=== PATIENT | female | born 2000 | race African-American/Black ===

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

== ENCOUNTER 2024-09-20 15:09 | Observation (INO) | payer MEDICAID ==
[2024-09-20] MEDS ORDERED: NITR-87 PO (15:39)
[2024-09-20] MEDS ORDERED: PREN-96 PO (15:39)
== END 2024-09-20 15:55 | disposition home or self-care (01) ==
LOC: LDRP 15:09
PROVIDERS: ADMIT Obstetrics & Gynecology; ATTEND Obstetrics & Gynecology
DX: O23.43 Unspecified infection of urinary tract in pregnancy, third trimester (principal); N39.0 Urinary tract infection, site not specified; O26.893 Other specified pregnancy related conditions, third trimester; R10.2 Pelvic and perineal pain; N89.8 Other specified noninflammatory disorders of vagina; Z3A.30 30 weeks gestation of pregnancy
CPT/HCPCS: 59025; 81002; 94760; G0378

== ENCOUNTER 2024-09-27 11:19 | Observation (INO) | payer MEDICAID ==
[~2024-09-27 11:19] MED LIST: NITR-87 PO; PREN-96 PO
[2024-09-27 12:41] LABS: Fern Testing Negative
== END 2024-09-27 13:40 | disposition home or self-care (01) ==
LOC: UNDOADMOB 11:19 → LDRP 11:19
PROVIDERS: ADMIT Obstetrics & Gynecology; ATTEND Obstetrics & Gynecology
DX: O62.9 Abnormality of forces of labor, unspecified (principal); Z3A.31 31 weeks gestation of pregnancy; Z79.899 Other long term (current) drug therapy; Z98.890 Other specified postprocedural states
CPT/HCPCS: 59025; 81002; 84112; 96360; 96361; G0378; Q0114

== ENCOUNTER 2024-10-16 18:29 | Observation (INO) | payer MEDICAID ==
[~2024-10-16] VITALS: Ht 144.8 cm; Wt 59.9 kg
--- NOTE | 2024-10-16 19:53 | DVH ---
BIOPHYSICAL PROFILE HISTORY: labor TECHNIQUE: Multiple transabdominal real-time grayscale sonographic images through the gravid uterus of the fetus with duplex Doppler color flow and M-mode spectral analysis FINDINGS: BIOPHYSICAL PROFILE: breathing score: 2 movement score: 2 tone score: 2 Quantitative VONDA score: 2 (VONDA: 18.1 Cm.) Total score: 8/8 Single live fetus in cephalic presentation. heart rate 134 beats per minute. Posterior placenta without previa or abruption IMPRESSION: 1. Biophysical profile score: 8/8 HS:Y
[2024-10-16 20:03] LABS: Basophils # (auto) 0 10 ^3/uL (0-0.2); Basophils % (auto) 0.5 % (0.0-2.0); Eosinophils # (auto) 0 10 ^3/uL (0-0.8); Eosinophils % (auto) 0.4 % (0.0-7.0); Hematocrit 29.9 % (36.0-46.0); Hemoglobin 10.2 g/dL (12.2-16.2); Lymphocytes # (auto) 1.4 10 ^3/uL (0.4-5.4); Lymphocytes % (auto) 32.6 % (10.0-50.0); Mean Corpuscular Hemoglobin 30.2 pg (28.0-32.0); Mean Corpuscular Hgb Conc. 34.1 g/dL (32.0-36.0); Mean Corpuscular Volume 88.6 fL (80.0-100.0); Monocytes # (auto) 0.8 10 ^3/uL (0-1.3); Monocytes % (auto) 17.5 % (0.0-12.0); Neutrophils # (auto) 2.2 10 ^3/uL (1.6-8.6); Platelet Count (auto) 165 10^3/uL (140-450); Red Blood Cells 3.37 10^6/uL (4.0-5.20); Red Cell Distribution Width 13.1 % (11.8-14.3); White Blood Cell 4.4 10^3/uL (4.4-10.8)
[2024-10-16 20:15] LABS: Protein, Urine < 6.0 mg/dL (1-14)
[2024-10-16 20:18] LABS: Urine Protein/Creatinine Ratio 0.47
[2024-10-16 20:21] LABS: Alanine Aminotransferase 10 U/L (7-40); Albumin 3.6 g/dL (3.2-4.8); Alkaline Phosphatase 133 U/L (46-116); Anion Gap 6 (5-15); Aspartate Aminotransferase 15 U/L (13-40); Calcium 9.5 mg/dL (8.7-10.4); Carbon Dioxide 24 mmol/L (20-31); Chloride 109 mmol/L (98-107); Glucose 85 mg/dL (74-106); Potassium 3.8 mmol/L (3.5-5.1); Sodium 139 mmol/L (136-145); Uric Acid 4.9 mg/dL (3.1-7.8)
[2024-10-16 20:22] LABS: Bilirubin, Total 0.4 mg/dL (0.2-1.0); Total Protein 6.1 g/dL (5.7-8.2)
--- NOTE | 2024-10-16 20:23 | DVH ---
LIMITED OB ULTRASOUND > 14 WKS: HISTORY: abd pain and contractions TECHNIQUE: Multiple real-time grayscale images of the gravid uterus with duplex Doppler color flow an d M-mode spectral analysis. TRANSDUCER: Transabdominal FINDINGS: IUP single live fetus at 32 weeks 3 days based on composite averages of the BPD, head circumference, abdominal circumference and femur length MEASUREMENTS: BPD: 8.84 cm GA: 34 w 1 d HC: 29.85 cm GA: 33 w 0 d AC: 27.56 cm GA: 31 w 4 d FL: 5.94 cm GA: 30 w 0 d Normal ratios. anatomic survey: Lateral ventricles: Normal Posterior fossa: Normal Umbilical cord: Normal insertion C-spine: Normal T-spine: Normal L-spine: Normal Heart: Normal four-chamber Kidneys: Normal without hydronephrosis Bladder: Normal Lower extremities: Normal Upper extremities: Normal Stomach: Normal stomach bubble Estimated weight 1834 grams heart rate 148 beats per minute VONDA 17.5 cm Cervix measures 4.6 cm in appears closed Cephalic Presentation Posterior placenta without previa or abruption. IMPRESSION: 1. IUP single live fetus at 32 weeks 3 days AUA corresponding to an GABRIEL of 12/08/2024. HS:Y
[2024-10-16 20:28] LABS: BUN/Creatinine Ratio 9.8 (10.0-20.0); Blood Urea Nitrogen < 5 mg/dL (9-23)
--- NOTE | 2024-10-16 20:29 | DVH ---
INDICATION: Abd and RUQ pain TECHNIQUE: Multiple real-time sonographic images of the abdomen were obtained. COMPARISON: Same day Ob ultrasound. Abdominal ultrasound 07/05/2024 FINDINGS: The liver is homogenous in echogenicity. The liver measures 15.3 cm. No intrahepatic bilia ry ductal dilatation is noted. The gallbladder wall measures 0.2 cm and is unremarkable. No gallstones or sludge is seen. The com mon duct measures 0.2 cm and is unremarkable. No pericholecystic fluid is noted. Die Stamping Press Operator notes a negative sonographic rodas's sign. The right kidney measures 10.5 cm. No hydronephrosis. The left kidney measures 10.7 cm. No hydronep hrosis. The spleen measures 8.7 cm, within normal limits. The echogenicity is within normal limits. The pancreas appears grossly normal. The visualized portions of the IVC and aorta are grossly unremarkable. IMPRESSION: 1. Unremarkable exam of the abdomen. HS:Y
[2024-10-16 20:50] LABS: Prothrombin Time 10.2 sec (9.3-11.8)
[2024-10-16 20:51] LABS: INR 0.96 (0.9-1.15); Partial Thromboplastin Time 25.7 SEC (24.5-34.5)
[2024-10-16] MEDS ORDERED: TERBUTALINE SULFATE 1 MG/ML 1ML VIAL SC ONE (21:00)
[2024-10-16 21:04] LABS: Urine Bacteria None Seen /hpf (None Seen)
[2024-10-16] MEDS: TERBUTALINE SULFATE 1 MG/ML 1ML VIAL SC SCH (21:10)
[2024-10-16 21:23] LABS: Urine Blood Negative /uL (Negative); Urine Clarity Clear (Clear); Urine Color Colorless (Yellow); Urine Protein, UAD Negative (Negative); Urine Specific Gravity 1.002 (1.001-1.035); Urine Urobilinogen Normal (Negative); Urine WBC <1 /hpf (0 - 5); Urine pH 6.5 (5.0-9.0)
[2024-10-16] MEDS: BETAMETHASONE ACET (30mg/5ml) 5ml Vial 6mg/ml IM ONE (21:33)
--- NOTE | 2024-10-16 22:55 | DVHDS2 ---
Physician Discharge Progress N Final Diagnosis: contractions, resolved Secondary Diagnosis: Ruled out for preeclampsia Operations or Procedures: Operations or Procedures S: 24yo IUP@34.0wks presents to OB triage with c/o UCs and abdominal pain that is 9/10 pain level. She also reports light head at her bilateral temples that did not go away with Tylenol at home. PNC with Dr. Palma in [place], uncomplicated . PMH of heart murmur and UTI that was recently treated. Denies UTI s/sx today. Denies LOF/VB/vision changes/RUQ pain. Endorses +FM. Pt reports drinking 4 leonidas's of water today. O: VSS Heart - murmur noted Lungs - clear bilaterally 2+ DTRs BLE NST reactive UCs palpated by RN, unable to see with TOCO Terbutaline SQ x1 and betamethasone IM x1 given No UCs reported by pt prior to D/C SVE by RN: 0/0/-3 OB sono WNL, CVL 4.6cm closed Abdominal sono WNL BPP wnl Urine P/C ratio is incalculable with total protein <6.0mg/dL Laboratory Tests Test 10/16/24 18:30 10/16/24 19:30 Range/Units Urine Color Colorless Yellow Urine Clarity Clear Clear Urine pH 6.5 5.0-9.0 Urine Specific [place] 1.002 1.001-1.035 Urine Protein Negative Negative Urine Ketones Negative Negative Urine Blood Negative Negative /uL Urine Nitrite Negative Negative Urine Bilirubin Negative Negative Urine Urobilinogen Normal Negative mg/dL Urine Leukocyte Esterase Negative Negative /uL Urine RBC None seen 0 - 4 /hpf Urine WBC <1 0 - 5 /hpf Urine Squamous Epithelial Cells Few <5 /hpf Urine Bacteria None seen None Seen /hpf Urine Creatinine 12.70 L 30.0-125.0 mg/dL -U-r-i-n-e- -O-u-l-t-e-i-n-/-D-t-s-r-v-t-n-i-n-e- -R-a-t-i-o- -0-.-4-7- Urine Glucose Normal Normal mg/dL Urine Total Protein < 6.0 1-14 mg/dL White Blood Count 4.4 4.4-10.8 10^3/uL Red Blood Count 3.37 L 4.0-5.20 10^6/uL Hemoglobin 10.2 L 12.2-16.2 g/dL Hematocrit 29.9 L 36.0-46.0 % Mean Corpuscular Volume 88.6 80.0-100.0 fL Mean Corpuscular Hemoglobin 30.2 28.0-32.0 pg Mean Corpuscular Hemoglobin Concent 34.1 32.0-36.0 g/dL Red Cell Distribution Width 13.1 11.8-14.3 % Platelet Count 165 140-450 10^3/uL Mean Platelet Volume 8.8 6.9-10.8 fL Neutrophils (%) (Auto) 49.0 37.0-80.0 % Lymphocytes (%) (Auto) 32.6 10.0-50.0 % Monocytes (%) (Auto) 17.5 H 0.0-12.0 % Eosinophils (%) (Auto) 0.4 0.0-7.0 % Basophils (%) (Auto) 0.5 0.0-2.0 % Neutrophils # (Auto) 2.2 1.6-8.6 10 ^3/uL Lymphocytes # (Auto) 1.4 0.4-5.4 10 ^3/uL Monocytes # (Auto) 0.8 0-1.3 10 ^3/uL Eosinophils # (Auto) 0 0-0.8 10 ^3/uL Basophils # (Auto) 0 0-0.2 10 ^3/uL Nucleated Red Blood Cells 0.0 % Prothrombin Time 10.2 9.3-11.8 sec Prothrombin Time INR 0.96 0.9-1.15 Activated Partial Thromboplast Time 25.7 24.5-34.5 SEC Fibrinogen 433 H 177-375 mg/dL Sodium Level 139 136-145 mmol/L Potassium Level 3.8 3.5-5.1 mmol/L Chloride Level 109 H 98-107 mmol/L Carbon Dioxide Level 24 20-31 mmol/L Anion Gap 6 5-15 Blood Urea Nitrogen < 5 L 9-23 mg/dL Creatinine 0.51 L 0.550-1.02 mg/dL Glomerular Filtration Rate Calc 134 >90 mL/min BUN/Creatinine Ratio 9.8 L 10.0-20.0 Serum Glucose 85 74-106 mg/dL Uric Acid 4.9 3.1-7.8 mg/dL Calcium Level 9.5 8.7-10.4 mg/dL Total Bilirubin 0.4 0.2-1.0 mg/dL Aspartate Amino Transferase (AST) 15 13-40 U/L Alanine Aminotransferase (ALT) 10 7-40 U/L Alkaline Phosphatase 133 H 46-116 U/L Total Protein 6.1 5.7-8.2 g/dL Albumin 3.6 3.2-4.8 g/dL A: 24yo IUP@34.0wks contractions, resolved Ruled out for preeclampsia P: D/C home FKC/PTL/PreE precautions reviewed Dr. Adames consulted, agrees with POC f/u with Dr. Palma on 10/17/24 to notify him of this triage visit Other Interventions Other Interventions [place] [id number] Ph: [phone] DIAGNOSTIC IMAGING Diagnostic Imaging Report : [id number] Signed PATIENT: CROW STEPHENSON ACCT: [id number] UNIT: [id number] : 2000 LOC: [facility] ROOM / BED: TRIAGE1 / A AGE / SEX: 24 / F ADM STATUS: ADM IN SERVICE 14 ORDERING PHYSICIAN: AQUILINO VEGA CNM PROCEDURE(s): BPP - BIOPHYSICAL PROFILE REASON: labor ORDER NUMBER(s): [id number], ACCESSION NUMBER(s): [id number] BIOPHYSICAL PROFILE HISTORY: labor TECHNIQUE: Multiple transabdominal real-time grayscale sonographic images through the gravid uterus of the fetus with duplex Doppler color flow and M-mode spectral analysis FINDINGS: BIOPHYSICAL PROFILE: breathing score: 2 movement score: 2 tone score: 2 Quantitative VONDA score: 2 (VONDA: 18.1 Cm.) Total score: 8/8 Single live fetus in cephalic presentation. heart rate 134 beats per minut e. Posterior placenta without previa or abruption IMPRESSION: 1. Biophysical profile score: 8/8 HS:Y ATED BY: KATE PEDRO DO DICTATED DATE/TIME: 10/16/241949 SIGNED BY: KATE PEDRO DO SIGNED DATE/TIME: 10/16/241949 CC: Consultations: Consultations [place] [address] Ph: [phone] DIAGNOSTIC IMAGING Diagnostic Imaging Report : [id number] Signed PATIENT: CROW STEPHENSON ACCT: [id number] UNIT: [id number] : 2000 LOC: [facility] ROOM / BED: TRIAGE1 / A AGE / SEX: 24 / F ADM STATUS: ADM IN SERVICE 14 ORDERING PHYSICIAN: AQUILINO VEGA CNM PROCEDURE(s): OBUS - OB ULTRASOUND COMP GTR 14 WKS REASON: abd pain and contractions ORDER NUMBER(s): [id number], ACCESSION NUMBER(s): [id number] LIMITED OB ULTRASOUND > 14 WKS: HISTORY: abd pain and contractions TECHNIQUE: Multiple real-time grayscale images of the gravid uterus with duplex Doppler color flow and M-mode spectral analysis. TRANSDUCER: Transabdominal FINDINGS: IUP single live fetus at 32 weeks 3 days based on composite averages of the BPD, head circumference, abdominal circumference and femur length MEASUREMENTS: BPD: 8.84 cm GA: 34 w 1 d HC: 29.85 cm GA: 33 w 0 d AC: 27.56 cm GA: 31 w 4 d FL: 5.94 cm GA: 30 w 0 d Normal ratios. anatomic survey: Lateral ventricles: Normal Posterior fossa: Normal Umbilical cord: Normal insertion C-spine: Normal T-spine: Normal L-spine: Normal Heart: Normal four-chamber Kidneys: Normal without hydronephrosis Bladder: Normal Lower extremities: Normal Upper extremities: Normal Stomach: Normal stomach bubble Estimated weight 1834 grams heart rate 148 beats per minute VONDA 17.5 cm Cervix measures 4.6 cm in appears closed Cephalic Presentation Posterior placenta without previa or abruption. IMPRESSION: 1. IUP single live fetus at 32 weeks 3 days AUA corresponding to an GABRIEL of 12/08/2024. HS:Y ATED BY: KATE PEDRO DO DICTATED DATE/TIME: 10/16/242019 SIGNED BY: KATE PEDRO DO SIGNED DATE/TIME: 10/16/242019 CC: Commentary: Commentary [place] [address] Ph: [phone] DIAGNOSTIC IMAGING Diagnostic Imaging Report : [id number] Signed PATIENT: CROW STEPHENSON ACCT: [id number] UNIT: [id number] : 2000 LOC: [facility] ROOM / BED: TRIAGE1 / A AGE / SEX: 24 / F ADM STATUS: ADM IN SERVICE 14 ORDERING PHYSICIAN: AQUILINO VEGA CNM PROCEDURE(s): ABDC - ABDOMEN COMPLETE SONOGRAM REASON: Abd and RUQ pain ORDER NUMBER(s): [id number], ACCESSION NUMBER(s): [id number] INDICATION: Abd and RUQ pain TECHNIQUE: Multiple real-time sonographic images of the abdomen were obtained. COMPARISON: Same day Ob ultrasound. Abdominal ultrasound 07/05/2024 FINDINGS: The liver is homogenous in echogenicity. The liver measures 15.3 cm. No intrahepatic biliary ductal dilatation is noted. The gallbladder wall measures 0.2 cm and is unremarkable. No gallstones or sludge is seen. The common duct measures 0.2 cm and is unremarkable. No pericholecystic fluid is noted. Associate Account Executive notes a negative sonographic rodas's sign. The right kidney measures 10.5 cm. No hydronephrosis. The left kidney measures 10.7 cm. No hydronephrosis. The spleen measures 8.7 cm, within normal limits. The echogenicity is within normal limits. The pancreas appears grossly normal. The visualized portions of the IVC and aorta are grossly unremarkable. IMPRESSION: 1. Unremarkable exam of the abdomen. HS:Y ATED BY: KATE PEDRO DO DICTATED DATE/TIME: 10/16/242026 SIGNED BY: KATE PEDRO DO SIGNED DATE/TIME: 10/16/242026 CC: Condition on Discharge: Stable Disposition: Home Discharge Instructions: Diet: Regular Activity: See Comment Activity comment: pelvic rest Medications: see med list Follow Up Care: Specialist: f/u with Dr. Palma on 10/17/24 to notify him of this triage visit Discharge Statement: "Patient was advised to return to the ER or call 911 if any headaches, dizziness, shortness of breath, chest pain, abdominal pain, bleeding, fevers, or worsening of medical condition. Patient was counseled about treatment plan, medications, possible side effects, patientverbalized understanding. All questions were answered to the best of my ability. This discharge took greater then 30 minutes in planning, reviewing documentation, counseling the patient, and discussing with other team members." AQUILINO VEGA CNM Oct 16, 2024 22:55
== END 2024-10-16 22:28 | disposition home or self-care (01) ==
LOC: LDRP 18:29
PROVIDERS: ADMIT Obstetrics & Gynecology; ATTEND Obstetrics & Gynecology
DX: O60.03 Preterm labor without delivery, third trimester (principal); Z3A.34 34 weeks gestation of pregnancy; Z79.899 Other long term (current) drug therapy
CPT/HCPCS: 36415; 59025; 76700; 76805; 76818; 80053; 81001; 81002; 82570; 84156; 84550; 85025; 85384; 85610; 85730; 94760; 96372; G0378; J0702; J3105

== ENCOUNTER 2024-10-17 21:02 | Observation (INO) | payer MEDICAID ==
[~2024-10-17] VITALS: Ht 144.8 cm; Wt 59.9 kg
[2024-10-17] MEDS: BETAMETHASONE ACET (30mg/5ml) 5ml Vial 6mg/ml IM ONE (21:27)
--- NOTE | 2024-10-17 21:52 | DVHDS2 ---
Physician Discharge Progress N Final Diagnosis: second dose of betamethasone Operations or Procedures: Operations or Procedures 24yo IUP@34.1wks, +FM, denies UCs/VB/LOF FHR: 142 second dose of IM betamethasone given FKC/PTL precautions reviewed. Continue pelvic rest. Dr. Adames consulted, agrees with POC. Condition on Discharge: Stable Disposition: Home Discharge Instructions: Diet: Regular Activity: See Comment Activity comment: pelvic rest Medications: see med list Follow Up Care: Specialist: f/u with primary OB on 10/18/24 and make them aware of triage visits. Discharge Statement: "Patient was advised to return to the ER or call 911 if any headaches, dizziness, shortness of breath, chest pain, abdominal pain, bleeding, fevers, or worsening of medical condition. Patient was counseled about treatment plan, medications, possible side effects, patientverbalized understanding. All questions were answered to the best of my ability. This discharge took greater then 30 minutes in planning, reviewing documentation, counseling the patient, and discussing with other team members." AQUILINO VEGA CNM Oct 17, 2024 21:52
== END 2024-10-17 22:04 | disposition home or self-care (01) ==
LOC: LDRP 21:02
PROVIDERS: ADMIT Obstetrics & Gynecology; ATTEND Obstetrics & Gynecology
DX: O62.9 Abnormality of forces of labor, unspecified (principal); O26.893 Other specified pregnancy related conditions, third trimester; R51.9 Headache, unspecified; Z3A.34 34 weeks gestation of pregnancy; Z79.899 Other long term (current) drug therapy; Z98.890 Other specified postprocedural states
CPT/HCPCS: 59025; 81002; 94760; 96372; G0378; J0702

== ENCOUNTER 2024-11-13 16:15 | Observation (INO) | payer MEDICAID ==
[2024-11-13 17:34] LABS: Vaginal Trichomonas Not Present
[2024-11-13 17:35] LABS: Vaginal Bacteria Many; Vaginal Clue Cells None Seen; Vaginal Epithelial Cells Moderate
--- NOTE | 2024-11-13 17:35 | DVH ---
EXAM: US OBSTERICAL LIMITED CLINICAL HISTORY: Possible SROM TECHNIQUE: Transabdominal ultrasound of the pelvis with color Doppler flow as clinically indicated. COMPARISON: US OB ULTRASOUND COMP GTR 14 WKS on DOS: 10/16/24 Findings/Impression: Single live intrauterine in vertex presentation with heart rate of 129 bpm. Cervical os is suboptimally visualized. Placenta is fundal in location without evidence of previa or abruption. VONDA 16.8 cm.
--- NOTE | 2024-11-13 19:42 | DVHDS2 ---
Physician Discharge Progress N Final Diagnosis: jen palacio contractions Operations or Procedures: Operations or Procedures S: 24yo IUP@38.0wks presents to OB triage with c/o UCs and mucous vaginal discharge. Denies LOF/VB/SANDERS/vision changes/RUQ pain. Endorses +FM. PNC in [place], uncomplicated. GBS negative. No other records available. O: VSS UA wnl EFM: FHR 130s, moderate variability, +accels, -decels TOCO: irregular UCs OB sono WNL SVE by RN : /-3, ambulated for 1 hr then /-3, intact, vertex Laboratory Tests Test 11/13/24 16:58 Range/Units Vaginal WBC (Wet Prep) Moderate Vaginal RBC (Wet Prep) Few Vaginal Epithelial Cells (Wet Prep) Moderate Vaginal Bacteria (Wet Prep) Many Vaginal Trichomonas (Wet Prep) Not present Vaginal Yeast (Wet Prep) None seen Vaginal Clue Cells (Wet Prep) None seen A: 24yo IUP@38.0wks Clarkson palacio contractions Category I EFM P: D/C home FKC/PreE/labor precautions reviewed Recommended miles circuit to aid in optimal positioning Condition on Discharge: Stable Disposition: Home Discharge Instructions: Diet: Regular Activity: No Restrictions, As Tolerated Medications: see med list Follow Up Care: Specialist: f/u with primary OB as scheduled Discharge Statement: "Patient was advised to return to the ER or call 911 if any headaches, dizziness, shortness of breath, chest pain, abdominal pain, bleeding, fevers, or worsening of medical condition. Patient was counseled about treatment plan, medications, possible side effects, patientverbalized understanding. All questions were answered to the best of my ability. This discharge took greater then 30 minutes in planning, reviewing documentation, counseling the patient, and discussing with other team members." AQUILINO VEGA CNM Nov 13, 2024 19:42
== END 2024-11-13 19:41 | disposition home or self-care (01) ==
LOC: LDRP 16:15 → UNDOADMOB 16:15 → LDRP 16:52 → UNDODISOB 19:41
PROVIDERS: ADMIT Obstetrics & Gynecology; ATTEND Obstetrics & Gynecology
DX: O62.9 Abnormality of forces of labor, unspecified (principal); N89.8 Other specified noninflammatory disorders of vagina; Z79.899 Other long term (current) drug therapy; Z98.890 Other specified postprocedural states; Z3A.38 38 weeks gestation of pregnancy
CPT/HCPCS: 59025; 76815; 81002; 87210; 94760; G0378

== ENCOUNTER 2024-12-02 19:39 | Observation (INO) | payer MEDICAID ==
[2024-12-02 22:00] LABS: Fern Testing Negative
--- NOTE | 2024-12-02 22:07 | DVH ---
BIOPHYSICAL PROFILE HISTORY: Contractions/abdominal pain Comparison Study: None available at time of dictation. TECHNIQUE: Multiple real-time grayscale sonographic images through the gravid uterus of the fetus wi th duplex Doppler color flow and M-mode spectral analysis FINDINGS: BIOPHYSICAL PROFILE: breathing score: 2 movement score: 2 tone score: 2 Quantitative VONDA score: 2 (VONDA: 16 Cm.) Total score: 8/8 heart rate of 130 beats per minute. position is cephalic. Placenta location is posterior . IMPRESSION: Biophysical profile score: 8/8
--- NOTE | 2024-12-02 22:10 | DVH ---
LIMITED OB ULTRASOUND > 14 WKS: HISTORY: Contractions/abd pain TECHNIQUE: Multiple real-time grayscale images of the gravid uterus with duplex Doppler color flow an d M-mode spectral analysis. TRANSDUCER: Transabdominal FINDINGS: IUP single live fetus at 38 weeks 3 days based on composite averages of the BPD, head circumference, abdominal circumference and femur length Estimated weight 3428 g grams heart rate 149 beats per minute VONDA 15.5 cm Cervix not visible Cephalic Presentation Posterior Grade grade 2 Placenta without previa or abruption. IMPRESSION: 1. IUP single live fetus at 20 weeks 3 days AUA corresponding to an GABRIEL of 12/13/2024 2. EFW: 3428 g 3. FHR: 149 bpm HS:Y
--- NOTE | 2024-12-02 22:59 | DVHDS2 ---
Physician Discharge Progress N Final Diagnosis: IUP at 40w 1d by LMP c/w 27week US Not In Labor Normal Biophysical Profile Category I FHR Tracing Other Interventions Other Interventions 24yo G1,0000 with EDC of 12/01/24 by a definite LMP of 02/25/24. Same c/w 27 week US per pt. EGA 40w 1d. She presents to the Place with report of vaginal pain and very occasional cramps. She reports normal movements, no VB, SANDERS, vision changes or epigastric pain. No urinary symptoms Receiving care with Dr Serrano. However last visit was at 37weeks EGA per pt due to health plan coverage complicated by Anemia; (pt taking iron) and CT infection in June. FITZ negative Dating History by patient as follows: LMP:02/25/24 Definite. EDC 12/01/24 US on 04/10/24 with EGA of 6weeks + US at 27weeks gave her EDC of 11/27/24 Based on above history, use EDC of 12/01/24 PMH is unremarkable. Reports no past surgery. She reports no toxic habit or IPV. She later reports possible ROM ROS: Neurological: Unremarkable except as noted in Presenting problem/ CC above Respiratory: reports no respiratory symptom, no SOB Cardiovascular: no palpitation, chest pain or easy fatigue : No vaginal or urinary symptom O: PE: A&O x3, NAD, well groomed. pleasant. Appropriate and normal mood and affect Afebrile, VSS Respiration unlabored Heart and lungs sounds: normal Abdomen: Gravid, non-tender to palpation. Fundal Ht 38cm. Cephalic presentation Extremities: No edema SSE: no pooling, Fern & amniosure negative VE: 2cm/20%/-2/posterior cervix, medium in consistency EFM: FHR baseline 135bpm with moderate variability and accelerations, no deceleration occasional contractions mild/mod to palpation A: IUP at 40w 1d Anemia in Membranes Intact Normal Biophysical Profile Category I FHR tracing P: Discharge home Advised to f/u with her OB provider within 48hours Educated on need for adequate hydration - advised to increased water intake 3rd trimester emergency S&S FMC, labor & pre-eclampsia precautions reviewed with pt; advised to seek health care if any Condition on Discharge: Stable Disposition: Home Discharge Instructions: Diet: Regular Activity: No Restrictions, As Tolerated Activity comment: Balance activities with rest periods Medications: Continue Vitamins & iron Follow Up Care: Discharge Statement: "Patient was advised to return to the ER or call 911 if any headaches, dizziness, shortness of breath, chest pain, abdominal pain, bleeding, fevers, or worsening of medical condition. Patient was counseled about treatment plan, medications, possible side effects, patientverbalized understanding. All questions were answered to the best of my ability. This discharge took greater then 30 minutes in planning, reviewing documentation, counseling the patient, and discussing with other team members." DEJAH CARRASCO CNM Dec 02, 2024 22:59
== END 2024-12-02 22:37 | disposition home or self-care (01) ==
LOC: LDRP 19:39
PROVIDERS: ADMIT Obstetrics & Gynecology; ATTEND Obstetrics & Gynecology
DX: O36.8130 Decreased fetal movements, third trimester, not applicable or unspecified (principal); O99.013 Anemia complicating pregnancy, third trimester; D64.9 Anemia, unspecified; Z98.890 Other specified postprocedural states; Z79.899 Other long term (current) drug therapy; Z3A.40 40 weeks gestation of pregnancy
CPT/HCPCS: 59025; 76805; 76818; 81002; 84112; 94760; G0378; Q0114

== ENCOUNTER 2024-12-04 19:23 | Inpatient (IN) | payer MEDICAID, OTHER ==
[~2024-12-04] VITALS: Ht 144.8 cm; Wt 63.5 kg
[2024-12-04] MEDS ORDERED: BUTORPHANOL TARTRATE 2 MG/1 ML VIAL IV PRN ×2 (20:00)
[2024-12-04] MEDS ORDERED: LIDOCAINE 2%HCL (LOCAL ANESTH.) INJ 20ML MDV IJ PRN (20:00)
[2024-12-04 20:41] LABS: Basophils # (auto) 0 10 ^3/uL (0-0.2); Basophils % (auto) 0.2 % (0.0-2.0); Eosinophils # (auto) 0 10 ^3/uL (0-0.8); Eosinophils % (auto) 0.2 % (0.0-7.0); Hematocrit 32.1 % (36.0-46.0); Hemoglobin 10.8 g/dL (12.2-16.2); Lymphocytes # (auto) 1.5 10 ^3/uL (0.4-5.4); Mean Corpuscular Hemoglobin 28.8 pg (28.0-32.0); Mean Corpuscular Hgb Conc. 33.7 g/dL (32.0-36.0); Mean Corpuscular Volume 85.4 fL (80.0-100.0); Monocytes # (auto) 0.6 10 ^3/uL (0-1.3); Monocytes % (auto) 9.8 % (0.0-12.0); Neutrophils # (auto) 4.2 10 ^3/uL (1.6-8.6); Neutrophils % (auto) 65.8 % (37.0-80.0); Nucleated Red Blood Cells % 0.1 %; Platelet Count (auto) 190 10^3/uL (140-450); Red Blood Cells 3.75 10^6/uL (4.0-5.20); Red Cell Distribution Width 14.1 % (11.8-14.3); White Blood Cell 6.4 10^3/uL (4.4-10.8)
[2024-12-04 20:50] LABS: Urine Bacteria None Seen /hpf (None Seen)
[2024-12-04] MEDS: PENICILLIN G POT 5MIL/D5 50ML 50 ML IV ONE (20:53)
[2024-12-04] MEDS: LACTATED RINGER'S 1,000 ML IV SCH (20:53)
--- NOTE | 2024-12-04 21:03 | DVHHP2 ---
OB CC & HPI Date Date of Admission: Dec 04, 2024 Patient Identification: : 1 Para: 0 EDC: Dec 01, 2024 EGA: 40.4wks Chief Complaints: Reason for admission: other (labor) History of Present Complaints 24yo IUP@40.4wks presents in labor. Pt reports UCs Q3 min that started this morning. Wants an epidural. Denies LOF/VB/SANDERS/vision changes/RUQ pain. Endorses +FM. PNC: Routine PNC in [place] with Dr. Chrissy Serrano, PNC complicated by iron deficiency anemia and +chlamydia in 06/2024 (pt and partner treated). GTT wnl, dating based on LMP, GBS negative. Past Medical History Cardiac: No pertinent Hx Pulmonary: No pertinent Hx Central Nervous System: No pertinent Hx GI: No pertinent Hx Hemotology/Oncology: No pertinent Hx Hepatobiliary: No pertinent Hx Psychiatric: No pertinent Hx Musculoskeletal: No pertinent Hx Rheumotologic: No pertinent Hx Infectious Disease: No peritnent Hx ENT: No pertinent Hx Renal/: No pertinent Hx Endocrine: No pertinent Hx Dermatology: No pertinent Hx Past Surgical History: No pertinent Hx OB History OB History Care: Good Care Ultrasounds: Normal mid trimester US Obstetrical Complications: None Medical Complications: None Allergies: Coded Allergies: NO KNOWN ALLERGIES (Unverified , 06/28/17) Allergies NKDA Home Meds Reported Medications Vit W/ Ferrous Fumara ( One Daily) Daily Tab, 1 TAB PO DAILY, #90 TAB 3 Refills 09/20/24 Discontinued Reported Medications Nitrofurantoin Monohydrate Mac (Macrobid) 100 Mg Cap, 100 MG PO BID for 7 Days, CAP 09/20/24 Current Medications Current Medications Medications (Trade) Dose Ordered Sig/Patrica Route PRN Reason Start Time Stop Time Status Last Admin Lactated Ringer's 1,000 ml @ 125 mls/hr Q8H IV 12/04/24 20:00 12/04/24 20:53 Penicillin G Potassium 8200063 units/Dextrose 50 ml @ 100 mls/hr Q4H IV 12/05/24 00:00 Nakul Posadas (Tucks) 1 pad PRN PRN TOP PERINEAL AREA DISCOMFORT 12/04/24 20:00 Sodium Lauryl Sulfate (Phisoderm) 240 ml PRN PRN TOP PERINEAL AREA DISCOMFORT 12/04/24 20:00 Benzocaine (Dermoplast) 1 applic PRN PRN TOP PERINEAL AREA DISCOMFORT 12/04/24 20:00 Butorphanol Tartrate (Stadol Injection) 1 mg Q4HPRN PRN IV MODERATE PAIN (4-6 PAIN SCALE) 12/04/24 20:00 Butorphanol Tartrate (Stadol Injection) 2 mg Q4HPRN PRN IV SEVERE PAIN (7-10 PAIN SCALE) 12/04/24 20:00 Lidocaine HCl (Xylocaine) 20 ml ONCE PRN IJ PERINEAL AREA DISCOMFORT 12/04/24 20:00 Family & Social History Family/Social History Past Family/Social History: denies Blood Type: A+ Rubella: unknown RPR/VDRL: Negative GBS Status: Negative HBsAG: Negative Review of Systems Constitutional: No symptom reported Ears, Nose, & Throat: No symptom reported Eyes: No symptom reported Pulmonary/Respiratory: No symptom reported Cardiovascular: No symptom reported Gastrointestinal: No symptom reported Genitourinary: No symptom reported Musculoskeletal: No symptom reported Skin: No symptom reported Psychiatric: No symptom reported Endocrine: No symptom reported Hemotologic/Lymphatic: No symptom reported OB Admission Exam Physical Exam Vitals: VSS except elevated BPs in the 140s/90s HEENT: TMs Normal, Fontanelles Normal, Nasal Mucosa Normal, Eyes non-injected, Oropharynx Normal, PERRLA, Moist Membranes, EOMI Heart: Rhythm Normal Lungs: Clear Abdomen: Gravid Extremities: Normal Reflexes: Normal Pelvic Exam: SVE by RN: 4/80/-2, intact, vertex EFW on 12/02/24: 3428 g, vertex Membranes: Intact Heart Rate: 120's Accelerations: Accelerations Present Decelerations: No Decelerations Beauty Director Variability: Average (6-25) Contractions on Admission: < 5 Minutes Apart Intensity: Moderate OB Plan Plan Admitting Diagnosis: Labor Plan: Expectant Management Other Plan: A: 24yo IUP@40.4wks Labor Category I EFM Intact Membranes GBS negative P: Admit to L&D Informed consent obtained Expectant management for now due to frequent UCs Discussed potential of starting pitocin with pt. Pt agrees with POC. monitoring per order Routine labs and PreE labs ordered Pain mgmt PRN Frequent position changes in and out of bed encouraged Limit SVE unless necessary Intrauterine resuscitation PRN Anticipate CNM will consult with AQUILINO Preciado CNM Dec 04, 2024 21:03
[2024-12-04 21:04] LABS: Urine Blood Negative /uL (Negative); Urine Clarity Clear (Clear); Urine Color Light-Yellow (Yellow); Urine Protein, UAD Negative (Negative); Urine Specific Gravity 1.009 (1.001-1.035); Urine Squamous Epithelial Cell FEW /hpf (<5); Urine Urobilinogen Normal (Negative); Urine WBC <1 /hpf (0 - 5)
[2024-12-04 21:05] LABS: INR 0.92 (0.9-1.15); Partial Thromboplastin Time 26.3 SEC (24.5-34.5); Prothrombin Time 9.8 sec (9.3-11.8)
[2024-12-04 21:08] LABS: Alanine Aminotransferase 10 U/L (7-40); Albumin 3.8 g/dL (3.2-4.8); Anion Gap 7 (5-15); Aspartate Aminotransferase 16 U/L (13-40); BUN/Creatinine Ratio 9.4 (10.0-20.0); Bilirubin, Total 0.7 mg/dL (0.2-1.0); Calcium 9.7 mg/dL (8.7-10.4); Carbon Dioxide 24 mmol/L (20-31); Chloride 106 mmol/L (98-107); Glucose 80 mg/dL (74-106); Potassium 3.8 mmol/L (3.5-5.1); Sodium 137 mmol/L (136-145)
[2024-12-04 21:09] LABS: Total Protein 6.8 g/dL (5.7-8.2)
[2024-12-04 21:10] LABS: Alkaline Phosphatase 315 U/L (46-116); Blood Urea Nitrogen 6 mg/dL (9-23)
[2024-12-04] MEDS ORDERED: ePHEDrine SULFATE 50 MG/ML AMP IV ONE (21:15)
[2024-12-04 21:29] LABS: Amphetamine Screen, Urine Neg (NEGATIVE); Barbiturate Scree,Urine Neg (NEGATIVE); Benzodiazephine Screen, Urine Neg (NEGATIVE); Cannabinoid Screen, Urine Pos (NEGATIVE); Cocaine Screen, Urine Neg (NEGATIVE); Opiate Scree,Urine Neg (NEGATIVE); Phencyclidine Screen, Urine Neg (NEGATIVE)
[2024-12-04] MEDS ORDERED: ONDANSETRON HCL 4 MG/2 ML VIAL IV PRN (21:30)
[2024-12-04] MEDS: ROPIVACAINE HCL 200 ML ONE (23:33)
[2024-12-04] MEDS: fentaNYL CITRATE 100 MCG/2 ML VL IV ONE (23:34)
[2024-12-05] MEDS ORDERED: PENICILLIN G POTASSIUM 2,500,000 UNITS in D5W 5% 50 ML IV SCH
[2024-12-05] MEDS: LACTATED RINGER'S 1,000 ML IV ONE (00:12)
[2024-12-05 00:17] LABS: Creatinine, Urine 78.42 mg/dL (30.0-125.0); Urine Protein/Creatinine Ratio 0.32
[2024-12-05] MEDS: LACT. RINGERS/OXYTOCIN 20UNITS 1,000 ML IV SCH (01:10)
[2024-12-05] MEDS: hydrALAZINE HCL 20 MG/ML VL IV PRN (03:03)
[2024-12-05] MEDS: ACETAMINOPHEN 325 MG TAB PO PRN (03:52)
[2024-12-05] MEDS ORDERED: ceFAZolin 1GM/50ML 50 ML IV ONE (05:30)
[2024-12-05] MEDS: ceFAZolin 2 GM/D5W50ml 50 ML IV ONE (05:44)
[2024-12-05] MEDS: ROPIVACAINE HCL ONE (12:09)
--- NOTE | 2024-12-05 12:43 | DVHPN2 ---
OB Labor Progress Note Date and Time Seen Date Seen: Dec 05, 2024 Time Seen: 12:41 Subjective Patient reports: No new complaints, Feels better Objective Vital Signs AFeb VS stable BP normal Monitoring Method Monitoring Method: External Heart Rate Heart Rate Baseline: 140 Heart Rate Variability: Moderate Presence of FHR Accelerations: Yes Presence of FHR Decelerations: No Contractions Contractions Intensity: Moderate Contractions Resting Tone: Relaxed Membranes Membranes: Ruptured (AROM) Amniotic Fluid Color: Clear Vaginal Exam Vag Exam Deferred: No Vaginal Exam Dilation: 8 Vaginal Exam Effacement: 90 Vaginal Exam Station: -1 Vaginal Exam Presentation: VTX Vaginal Exam Show: None Medications Medication - Epidural: Yes Lab Results Lab Results Vital Signs Date Time Temp Pulse Resp B/P (MAP) Pulse Ox O2 Delivery O2 Flow Rate FiO2 12/05/24 04:45 99.2 12/05/24 03:03 143/101 Current Medications Medications (Trade) Dose Ordered Sig/Patrica Start Time Stop Time Status Last Admin Dose Admin Lactated Ringer's 1,000 ml @ 125 mls/hr Q8H 12/04/24 20:00 12/04/24 20:53 125 MLS/HR Penicillin G Potassium 50 ml @ 100 mls/hr ONCE ONCE 12/04/24 20:00 12/04/24 20:39 DC 12/04/24 20:53 100 MLS/HR Penicillin G Potassium [id number] units/Dextrose 50 ml @ 100 mls/hr Q4H 12/05/24 00:00 12/05/24 00:08 DC Nakul Posadas (Tucks) 1 pad PRN PRN 12/04/24 20:00 Sodium Lauryl Sulfate (Phisoderm) 240 ml PRN PRN 12/04/24 20:00 Benzocaine (Dermoplast) 1 applic PRN PRN 12/04/24 20:00 Butorphanol Tartrate (Stadol Injection) 1 mg Q4HPRN PRN 12/04/24 20:00 Butorphanol Tartrate (Stadol Injection) 2 mg Q4HPRN PRN 12/04/24 20:00 Lidocaine HCl (Xylocaine) 20 ml ONCE PRN 12/04/24 20:00 Oxytocin 500 ml @ 999 mls/hr Q31M ONCE 12/04/24 20:00 12/04/24 20:39 DC Oxytocin 500 ml @ 125 mls/hr Q4H ONCE 12/04/24 20:30 12/05/24 00:29 DC Ephedrine Sulfate (ePHEDrine SULFATE) 10 mg PRN ONCE 12/04/24 21:15 12/04/24 21:16 DC Lactated Ringer's 1,000 ml @ 1,000 mls/hr Q1H ONCE 12/04/24 21:15 12/04/24 22:14 DC 12/05/24 00:12 1,000 MLS/HR Fentanyl Citrate 100 mcg ONCE ONCE 12/04/24 21:15 12/04/24 21:20 DC 12/04/24 23:34 100 MCG Ondansetron HCl (Zofran) 4 mg Q6HPRN PRN 12/04/24 21:30 Oxytocin 1,000 ml @ 6 ml/hr Q24H 12/05/24 01:00 12/05/24 01:10 6 ML/HR Hydralazine HCl (Apresoline Injection) 5 mg Q20MP PRN 12/05/24 02:45 12/05/24 03:03 5 MG Acetaminophen (Tylenol Tablet) 975 mg Q6HP PRN 12/05/24 03:45 12/05/24 03:52 975 MG Cefazolin Sodium 50 ml @ 100 mls/hr Q8HR 12/05/24 14:00 Cefazolin Sodium/ Dextrose 50 ml @ 50 mls/hr ONCE ONCE 12/05/24 05:30 12/05/24 06:29 DC 12/05/24 05:44 50 MLS/HR Laboratory Tests Test 12/04/24 20:49 12/04/24 20:21 Range/Units Urine Color Light-yellow Yellow Urine Clarity Clear Clear Urine pH 7.0 5.0-9.0 Urine Specific [place] 1.009 1.001-1.035 Urine Protein Negative Negative Urine Ketones Negative Negative Urine Blood Negative Negative /uL Urine Nitrite Negative Negative Urine Bilirubin Negative Negative Urine Urobilinogen Normal Negative mg/dL Urine Leukocyte Esterase Negative Negative /uL Urine RBC None seen 0 - 4 /hpf Urine WBC <1 0 - 5 /hpf Urine Squamous Epithelial Cells Few <5 /hpf Urine Bacteria None seen None Seen /hpf Urine Creatinine 78.42 30.0-125.0 mg/dL Urine Protein/Creatinine Ratio 0.32 Urine Glucose Normal Normal mg/dL Urine Total Protein 25.0 H 1-14 mg/dL Urine Opiates Screen Neg NEGATIVE Urine Fentanyl Screen Neg NEGATIVE Urine Barbiturates Screen Neg NEGATIVE Urine Phencyclidine Screen Neg NEGATIVE Urine Amphetamines Screen Neg NEGATIVE Urine Benzodiazepines Screen Neg NEGATIVE Urine Cocaine Screen Neg NEGATIVE Urine Cannabinoids Screen Pos NEGATIVE Chlamydia trachomatis (MONIKA) Pending Neisseria gonorrhoeae (MONIKA) Pending White Blood Count 6.4 4.4-10.8 10^3/uL Red Blood Count 3.75 L 4.0-5.20 10^6/uL Hemoglobin 10.8 L 12.2-16.2 g/dL Hematocrit 32.1 L 36.0-46.0 % Mean Corpuscular Volume 85.4 80.0-100.0 fL Mean Corpuscular Hemoglobin 28.8 28.0-32.0 pg Mean Corpuscular Hemoglobin Concent 33.7 32.0-36.0 g/dL Red Cell Distribution Width 14.1 11.8-14.3 % Platelet Count 190 140-450 10^3/uL Mean Platelet Volume 9.0 6.9-10.8 fL Neutrophils (%) (Auto) 65.8 37.0-80.0 % Lymphocytes (%) (Auto) 24.0 10.0-50.0 % Monocytes (%) (Auto) 9.8 0.0-12.0 % Eosinophils (%) (Auto) 0.2 0.0-7.0 % Basophils (%) (Auto) 0.2 0.0-2.0 % Neutrophils # (Auto) 4.2 1.6-8.6 10 ^3/uL Lymphocytes # (Auto) 1.5 0.4-5.4 10 ^3/uL Monocytes # (Auto) 0.6 0-1.3 10 ^3/uL Eosinophils # (Auto) 0 0-0.8 10 ^3/uL Basophils # (Auto) 0 0-0.2 10 ^3/uL Nucleated Red Blood Cells 0.1 % Prothrombin Time 9.8 9.3-11.8 sec Prothrombin Time INR 0.92 0.9-1.15 Activated Partial Thromboplast Time 26.3 24.5-34.5 SEC Sodium Level 137 136-145 mmol/L Potassium Level 3.8 3.5-5.1 mmol/L Chloride Level 106 98-107 mmol/L Carbon Dioxide Level 24 20-31 mmol/L Anion Gap 7 5-15 Blood Urea Nitrogen 6 L 9-23 mg/dL Creatinine 0.64 0.550-1.02 mg/dL Glomerular Filtration Rate Calc 127 >90 mL/min BUN/Creatinine Ratio 9.4 L 10.0-20.0 Serum Glucose 80 74-106 mg/dL Hemoglobin A1c 5.7 <5.7 % A1C Uric Acid 6.6 3.1-7.8 mg/dL Calcium Level 9.7 8.7-10.4 mg/dL Total Bilirubin 0.7 0.2-1.0 mg/dL Aspartate Amino Transferase (AST) 16 13-40 U/L Alanine Aminotransferase (ALT) 10 7-40 U/L Alkaline Phosphatase 315 H 46-116 U/L Total Protein 6.8 5.7-8.2 g/dL Albumin 3.8 3.2-4.8 g/dL Rapid Plasma Reagin Pending Treponema pallidum Ab (TP-PA) Pending Hepatitis B Surface Antigen Negative Negative Hepatitis C Antibody Negative Negative HIV (1&2) Antibody Negative Negative Rubella IgG Antibody Pending Assessment Assessment Term IUP, Labor Categ 1 FHR s/p Amniotomy Plan Plan Continue labor mgmt anticipated Plan discussed with: Patient, Other (RN) DEDE ANDRADE DO Dec 05, 2024 12:43
[2024-12-05] MEDS: ceFAZolin 1GM/50ML 50 ML IV SCH (14:16)
[2024-12-05] MEDS: diphenhdrAMINE HCL 50 MG/1 ML VL IV ONE (15:38)
--- NOTE | 2024-12-05 16:28 | DVHPN2 ---
CNM Labor Progress Note Date and Time Seen Date Seen: Dec 05, 2024 Time Seen: 16:08 Subjective Patient reports: Feels worse Subjective Comment Pt feeling pain even after using PCEA. Objective Vital Signs VSS Monitoring Method Monitoring Method: External Heart Rate Heart Rate Baseline: 135 Heart Rate Variability: Moderate Presence of FHR Accelerations: Yes Presence of FHR Decelerations: No Are all 5 Components of the FH: Yes Contractions Contractions Frequency: Other (q2-5min) Duration of Contraction: 100 Contractions Intensity: Moderate Contractions Resting Tone: Relaxed Membranes Membranes: Ruptured Amniotic Fluid Color: Clear Vaginal Exam Vag Exam Deferred: No Vaginal Exam Dilation: 8 Vaginal Exam Effacement: 90 Vaginal Exam Station: 0 Vaginal Exam Presentation: VTX Vaginal Exam Show: Small Medications Medications - Pitocin: No Medication - Epidural: Yes Lab Results Lab Results Vital Signs Date Time Temp Pulse Resp B/P (MAP) Pulse Ox O2 Delivery O2 Flow Rate FiO2 12/05/24 21:04 99.9 12/05/24 03:03 143/101 Current Medications Medications (Trade) Dose Ordered Sig/Patrica Start Time Stop Time Status Last Admin Dose Admin Lactated Ringer's 1,000 ml @ 125 mls/hr Q8H 12/04/24 20:00 12/05/24 20:45 DC 12/05/24 16:51 125 MLS/HR Penicillin G Potassium 50 ml @ 100 mls/hr ONCE ONCE 12/04/24 20:00 12/04/24 20:39 DC 12/04/24 20:53 100 MLS/HR Penicillin G Potassium [id number] units/Dextrose 50 ml @ 100 mls/hr Q4H 12/05/24 00:00 12/05/24 00:08 DC Nakul Posadas (Tucks) 1 pad PRN PRN 12/04/24 20:00 Sodium Lauryl Sulfate (Phisoderm) 240 ml PRN PRN 12/04/24 20:00 Benzocaine (Dermoplast) 1 applic PRN PRN 12/04/24 20:00 Butorphanol Tartrate (Stadol Injection) 1 mg Q4HPRN PRN 12/04/24 20:00 Butorphanol Tartrate (Stadol Injection) 2 mg Q4HPRN PRN 12/04/24 20:00 Lidocaine HCl (Xylocaine) 20 ml ONCE PRN 12/04/24 20:00 Oxytocin 500 ml @ 999 mls/hr Q31M ONCE 12/04/24 20:00 12/04/24 20:39 DC 12/05/24 19:07 999 MLS/HR Oxytocin 500 ml @ 125 mls/hr Q4H ONCE 12/04/24 20:30 12/05/24 00:29 DC Ephedrine Sulfate (ePHEDrine SULFATE) 10 mg PRN ONCE 12/04/24 21:15 12/04/24 21:16 DC Lactated Ringer's 1,000 ml @ 1,000 mls/hr Q1H ONCE 12/04/24 21:15 12/04/24 22:14 DC 12/05/24 00:12 1,000 MLS/HR Fentanyl Citrate 100 mcg ONCE ONCE 12/04/24 21:15 12/04/24 21:20 DC 12/04/24 23:34 100 MCG Ondansetron HCl (Zofran) 4 mg Q6HPRN PRN 12/04/24 21:30 12/05/24 20:46 DC Oxytocin 1,000 ml @ 6 ml/hr Q24H 12/05/24 01:00 12/05/24 20:45 DC 12/05/24 16:19 6 ML/HR Hydralazine HCl (Apresoline Injection) 5 mg Q20MP PRN 12/05/24 02:45 12/05/24 03:03 5 MG Acetaminophen (Tylenol Tablet) 975 mg Q6HP PRN 12/05/24 03:45 12/05/24 19:39 975 MG Cefazolin Sodium 50 ml @ 100 mls/hr Q8HR 12/05/24 14:00 12/05/24 19:36 DC 12/05/24 14:16 100 MLS/HR Cefazolin Sodium/ Dextrose 50 ml @ 50 mls/hr ONCE ONCE 12/05/24 05:30 12/05/24 06:29 DC 12/05/24 05:44 50 MLS/HR Diphenhydramine HCl (Benadryl Injection) 50 mg ONCE ONCE 12/05/24 15:20 12/05/24 15:28 DC 12/05/24 15:38 50 MG Famotidine (Pepcid Injection) 20 mg ONCE ONCE 12/05/24 16:15 12/05/24 16:31 DC 12/05/24 16:35 20 MG Mineral Oil (Muri-Lube) 20 ml ONCE ONCE 12/05/24 18:00 12/05/24 18:01 DC Cefazolin Sodium 50 ml @ 100 mls/hr Q8HR 12/05/24 22:00 12/05/24 21:03 DC Ibuprofen (Motrin Tablet) 600 mg Q6HP PRN 12/05/24 20:45 12/05/24 21:04 600 MG Oxytocin 500 ml @ 999 mls/hr Q31M ONCE 12/05/24 20:45 12/05/24 21:15 DC Ondansetron HCl (Zofran) 4 mg Q4HP PRN 12/05/24 20:45 Oxytocin 500 ml @ 125 mls/hr Q4H ONCE 12/05/24 21:15 12/06/24 01:14 Docusate Sodium (Colace Capsule) 200 mg HS 12/05/24 22:00 Cephalexin (Keflex Capsule) 500 mg Q6HR 12/05/24 21:00 Laboratory Tests Test 12/04/24 20:49 12/04/24 20:21 Range/Units Urine Color Light-yellow Yellow Urine Clarity Clear Clear Urine pH 7.0 5.0-9.0 Urine Specific [place] 1.009 1.001-1.035 Urine Protein Negative Negative Urine Ketones Negative Negative Urine Blood Negative Negative /uL Urine Nitrite Negative Negative Urine Bilirubin Negative Negative Urine Urobilinogen Normal Negative mg/dL Urine Leukocyte Esterase Negative Negative /uL Urine RBC None seen 0 - 4 /hpf Urine WBC <1 0 - 5 /hpf Urine Squamous Epithelial Cells Few <5 /hpf Urine Bacteria None seen None Seen /hpf Urine Creatinine 78.42 30.0-125.0 mg/dL Urine Protein/Creatinine Ratio 0.32 Urine Glucose Normal Normal mg/dL Urine Total Protein 25.0 H 1-14 mg/dL Urine Opiates Screen Neg NEGATIVE Urine Fentanyl Screen Neg NEGATIVE Urine Barbiturates Screen Neg NEGATIVE Urine Phencyclidine Screen Neg NEGATIVE Urine Amphetamines Screen Neg NEGATIVE Urine Benzodiazepines Screen Neg NEGATIVE Urine Cocaine Screen Neg NEGATIVE Urine Cannabinoids Screen Pos NEGATIVE Chlamydia trachomatis (MONIKA) Pending Neisseria gonorrhoeae (MONIKA) Pending White Blood Count 6.4 4.4-10.8 10^3/uL Red Blood Count 3.75 L 4.0-5.20 10^6/uL Hemoglobin 10.8 L 12.2-16.2 g/dL Hematocrit 32.1 L 36.0-46.0 % Mean Corpuscular Volume 85.4 80.0-100.0 fL Mean Corpuscular Hemoglobin 28.8 28.0-32.0 pg Mean Corpuscular Hemoglobin Concent 33.7 32.0-36.0 g/dL Red Cell Distribution Width 14.1 11.8-14.3 % Platelet Count 190 140-450 10^3/uL Mean Platelet Volume 9.0 6.9-10.8 fL Neutrophils (%) (Auto) 65.8 37.0-80.0 % Lymphocytes (%) (Auto) 24.0 10.0-50.0 % Monocytes (%) (Auto) 9.8 0.0-12.0 % Eosinophils (%) (Auto) 0.2 0.0-7.0 % Basophils (%) (Auto) 0.2 0.0-2.0 % Neutrophils # (Auto) 4.2 1.6-8.6 10 ^3/uL Lymphocytes # (Auto) 1.5 0.4-5.4 10 ^3/uL Monocytes # (Auto) 0.6 0-1.3 10 ^3/uL Eosinophils # (Auto) 0 0-0.8 10 ^3/uL Basophils # (Auto) 0 0-0.2 10 ^3/uL Nucleated Red Blood Cells 0.1 % Prothrombin Time 9.8 9.3-11.8 sec Prothrombin Time INR 0.92 0.9-1.15 Activated Partial Thromboplast Time 26.3 24.5-34.5 SEC Sodium Level 137 136-145 mmol/L Potassium Level 3.8 3.5-5.1 mmol/L Chloride Level 106 98-107 mmol/L Carbon Dioxide Level 24 20-31 mmol/L Anion Gap 7 5-15 Blood Urea Nitrogen 6 L 9-23 mg/dL Creatinine 0.64 0.550-1.02 mg/dL Glomerular Filtration Rate Calc 127 >90 mL/min BUN/Creatinine Ratio 9.4 L 10.0-20.0 Serum Glucose 80 74-106 mg/dL Hemoglobin A1c 5.7 <5.7 % A1C Uric Acid 6.6 3.1-7.8 mg/dL Calcium Level 9.7 8.7-10.4 mg/dL Total Bilirubin 0.7 0.2-1.0 mg/dL Aspartate Amino Transferase (AST) 16 13-40 U/L Alanine Aminotransferase (ALT) 10 7-40 U/L Alkaline Phosphatase 315 H 46-116 U/L Total Protein 6.8 5.7-8.2 g/dL Albumin 3.8 3.2-4.8 g/dL Rapid Plasma Reagin Pending Treponema pallidum Ab (TP-PA) Pending Hepatitis B Surface Antigen Negative Negative Hepatitis C Antibody Negative Negative HIV (1&2) Antibody Negative Negative Rubella IgG Antibody Pending Assessment Assessment 24yo IUP@40.5wks Active Labor Preeclampsia without severe features Category I EFM Intact Membranes GBS negative Plan Plan Restart IV pitocin RN to call anesthesia for epidural bolus and reposition pt to hands and knees Dr. Adames consulted, she will come to bedside to assess pts preeclampsia. CNM is co-managing with Dr. Adames. monitoring per order Epidural in place Frequent position changes in bed with peanut ball encouraged Limit SVE unless necessary Intrauterine resuscitation PRN Anticipate Plan discussed with: Patient, Spouse AQUILINO VEGA NIKOLAI Dec 05, 2024 16:28
[2024-12-05] MEDS: FAMOTIDINE (10MG/ML) 2ML VL IV ONE (16:35)
[2024-12-05] MEDS: MINERAL OIL TOPICAL 10ml TOP ONE (17:54)
[2024-12-05] MEDS ORDERED: MINERAL OIL TOPICAL 10ml TOP ONE (18:00)
[2024-12-05] MEDS: LACT. RINGERS/OXYTOCIN 20UNITS 500 ML IV ONE ×2 (19:07→22:46)
--- NOTE | 2024-12-05 20:27 | LDN2 ---
Labor and Delivery Note Date 12/05/24 Age 24 1 Para 1 now AB 0 EDC 12/01/24 EGA 40.4wks Diagnosis Spontaneous labor, pitocin augmentation, preeclampsia without severe features, then Vaginal Delivery: VTX Vacuum Assisted: No Placenta: Spontaneous Sex: Male Weight pending Apgars 8/9 Nuchal Cord Present: No Nuchal Cord Transected: No Amniotic Fluid: Clear Anesthesia epidural and local Episiotomy: Yes (MLE by Dr. Adames) Extension: No Lacerations: No Repaired with 2-0 chromic and 3-[address] Adames and Maribel Santaamria CNM EBL QBL 1100ml Complications PPH: uterine atony and bleeding from MLE. IV pitocin bolus, TXA IV 1g and cytotec 800mcg [place] given. Pt had BM with 600mcg of cytotec, so she only received total of 200mcg cytotec. Conditions stable Fish Header [place] Comments/Significant Med [place] Dr. Adames is managing preeclampsia. Pt wants IV discontinued. Providers educated on risks of preeclampsia with possible stroke, eclamptic seizure, multisystem organ failure, and . Pt verbalized understanding and still wants IV taken out, refusal form signed. Delivery Summary At 1839 this 24yo now delivered a viable Male by w/ APGARS 8/9. DEWAYNE presentation. Infant placed skin to skin on pts chest. Cord clamped and cut after 60 seconds. Cord blood and cord gases sent. Venous pH 7.36. Intact 3- vessel cord placenta delivered spontaneously, [place]. Pitocin IV bolus started. Placenta sent to pathology. Patient had epidural and local anesthesia. Cervix/vagina inspected (intact). Midline episiotomy repaired with 2-0 chromic and 3-[address] Adames and Maribel Santamaria CNM. Fundus at U, firm, midline, and light lochia. QBL 1100ml. VSS, normotensive. Count correct x2. Patient to care and baby to couplet care, both stable. Rectal exam performed, WNL. AQUILINO SANTAMARIA CNM Dec 05, 2024 20:27
[2024-12-05] MEDS ORDERED: LACT. RINGERS/OXYTOCIN 20UNITS 500 ML IV ONE ×2 (20:45→21:15)
[2024-12-05] MEDS ORDERED: ONDANSETRON HCL 4 MG/2 ML VIAL IV PRN (20:45)
[2024-12-05] MEDS: IBUPROFEN 600 MG TAB PO PRN (21:04)
[2024-12-05] MEDS ORDERED: ceFAZolin 1GM/50ML 50 ML IV SCH (22:00)
[2024-12-05] MEDS: DOCUSATE SOD 100 MG CAP PO SCH (22:00)
[2024-12-05] MEDS ORDERED: TRANEXAMIC ACID 1,000 mg/10ml INJ VIAL IV ONE (22:05)
[2024-12-05] MEDS: CEPHALEXIN 250 MG CAP PO SCH (22:22)
[2024-12-05 23:00] VITALS: BP 126/66; PULSE 91; RESP 16; TEMP 98.7; O2SAT 99
--- NOTE | 2024-12-06 00:29 | DVHPN2 ---
Progress Note Date Seen: Dec 06, 2024 Subjective S: bleeding is less, eating food without issues, denies lightheaded/dizziness, pain well controlled with oral medications, no concerns with urinating, passing flatus, no BM yet, ambulating well, vital signs Vital Sign Date Time Temp Pulse Resp B/P (MAP) Pulse Ox O2 Delivery O2 Flow Rate FiO2 12/05/24 21:04 99.9 12/05/24 03:03 143/101 medications Current Medications Medications Dose Ordered Sig/Patrica Route Start Time Stop Time Status Last Admin Dose Admin Nakul Posadas 1 pad PRN PRN TOP 12/04/24 20:00 Sodium Lauryl Sulfate 240 ml PRN PRN TOP 12/04/24 20:00 Benzocaine 1 applic PRN PRN TOP 12/04/24 20:00 Hydralazine HCl 5 mg Q20MP PRN IV 12/05/24 02:45 12/05/24 03:03 5 MG Acetaminophen 975 mg Q6HP PRN PO 12/05/24 03:45 12/05/24 19:39 975 MG Ibuprofen 600 mg Q6HP PRN PO 12/05/24 20:45 12/05/24 21:04 600 MG Docusate Sodium 200 mg HS PO 12/05/24 22:00 Cephalexin 500 mg Q6HR PO 12/05/24 21:00 12/05/24 22:22 500 MG laboratory and microbiology Laboratory Tests 12/04/24 20:21 Test 12/04/24 20:21 Range/Units Serum Glucose 80 74-106 mg/dL Objective O: VSS Chest: heart sounds normal and lung sounds clear bilaterally Abd: soft, non-tender, fundus at U/firm/midline, active bowel sounds, no rebound or guarding Perineum: 1+ edema, sutures intact, edges well approximated, no erythema noted Ext: Non-tender, No edema, 2+ BLE DTRs Lochia: minimal See lab results Problems(with codes): (1) (normal spontaneous vaginal delivery) (2) PPH ( hemorrhage) (3) Preeclampsia (4) At risk for infection associated with episiotomy Assessment/Plan A: 24yo now PPD#1 s/p w/MLE Preeclampsia -Continue with routine PP care -Dr. Adames is managing preeclampsia and NIKOLAI is managing PP care Plan discussed with: Patient, Spouse AQUILINO VEGA CNM Dec 06, 2024 00:29
[2024-12-06] MEDS ORDERED: ACETAMINOPHEN 325 MG TAB PO PRN (02:00)
[2024-12-06] MEDS: ACETAMINOPHEN 325 MG TAB PO PRN (02:17)
[2024-12-06 03:00] VITALS: BP 121/59; PULSE 76; RESP 18; TEMP 98.4; O2SAT 98
[2024-12-06 07:06] LABS: RPR Non Reactive (Non Reactive)
[2024-12-06 07:15] VITALS: BP 135/86; PULSE 74; RESP 16; TEMP 98.1; O2SAT 100
[2024-12-06 08:06] LABS: Rubella Antibodies, IgG 2.91 index (Immune >0.99)
[2024-12-06 10:21] LABS: Basophils # (auto) 0 10 ^3/uL (0-0.2); Basophils % (auto) 0.1 % (0.0-2.0); Eosinophils # (auto) 0 10 ^3/uL (0-0.8); Eosinophils % (auto) 0.4 % (0.0-7.0); Hematocrit 23.2 % (36.0-46.0); Hemoglobin 7.8 g/dL (12.2-16.2); Lymphocytes # (auto) 1.8 10 ^3/uL (0.4-5.4); Mean Corpuscular Hgb Conc. 33.8 g/dL (32.0-36.0); Mean Corpuscular Volume 85.8 fL (80.0-100.0); Monocytes # (auto) 1.2 10 ^3/uL (0-1.3); Monocytes % (auto) 12.9 % (0.0-12.0); Neutrophils # (auto) 6.3 10 ^3/uL (1.6-8.6); Neutrophils % (auto) 67.6 % (37.0-80.0); Platelet Count (auto) 165 10^3/uL (140-450); White Blood Cell 9.3 10^3/uL (4.4-10.8)
[2024-12-06 11:00] VITALS: BP 136/82; TEMP 97.8; O2SAT 99
[2024-12-06] MEDS ORDERED: PREN-96 PO ×2 (11:40)
[2024-12-06] MEDS ORDERED: IBU600T PO ×2 (11:40)
[2024-12-06] MEDS ORDERED: FER325T PO ×2 (11:40)
[2024-12-06] MEDS ORDERED: DOCU-265 PO ×2 (11:40)
[2024-12-06] MEDS: DOCUSATE SOD 100 MG CAP PO PRN (12:05)
[2024-12-06 13:06] LABS: Chlamydia Trachomatis, NAA Positive (Negative); Neisseria gonorrhoeae, NAA Negative (Negative)
[2024-12-06 15:00] VITALS: BP 125/71; PULSE 65; RESP 16; TEMP 97.6; O2SAT 100
[2024-12-06] MEDS: DERMOPLAST 60ML BOTTLE TOP PRN (17:51)
[2024-12-06] MEDS: WITCH HAZEL-GLYCERIN PAD TOP PRN (17:52)
[2024-12-06] MEDS: PHISODERM TOP SOLN 240ML BTL TOP PRN (17:52)
[2024-12-10 13:06] LABS: Treponema Pallidum Ab LC Non Reactive (Non Reactive)
== END 2024-12-06 19:04 | disposition home or self-care (01) | DRG 560 ==
LOC: LDRP 19:23 → UNDOADMOB 19:23 → LDRP 19:46 → OBSVTOIN 19:46
PROVIDERS: ADMIT Obstetrics & Gynecology; ATTEND Obstetrics & Gynecology
PROC: 10E0XZZ Delivery of Products of Conception, External Approach (ICD-10-PCS; principal; 2024-12-05)
PROC: 0W8NXZZ Division of Female Perineum, External Approach (ICD-10-PCS; 2024-12-05)
PROC: 3E0R3BZ Introduction of Anesthetic Agent into Spinal Canal, Percutaneous Approach (ICD-10-PCS; 2024-12-05)
PROC: 00HU33Z Insertion of Infusion Device into Spinal Canal, Percutaneous Approach (ICD-10-PCS; 2024-12-05)
DX: O48.0 Post-term pregnancy (principal); Z37.0 Single live birth; O14.94 Unspecified pre-eclampsia, complicating childbirth; O72.1 Other immediate postpartum hemorrhage; R71.0 Precipitous drop in hematocrit; Z3A.40 40 weeks gestation of pregnancy
CPT/HCPCS: 36415; 59025; 59409; 62282; 80053; 80307; 81001; 81002; 82570; 83036; 84156; 84550; 85025; 85610; 85730; 86592; 86703; 86762; 86780; 86803; 86850; 86900; 86901; 87340; 94760; 94762; 96360; 96361; 96366; 96374; 96375; G0378; J2405; J2540; J2590; J3490; J7060

== ENCOUNTER 2024-12-16 00:01 | Emergency (ER) | payer MEDICAID ==
[~2024-12-16] VITALS: Ht 144.8 cm; Wt 57.4 kg
[~2024-12-16 00:01] MED LIST changes: +DOCU-265 PO; +FER325T PO; +IBU600T PO
[2024-12-16 01:00] LABS: Basophils # (auto) 0 10 ^3/uL (0-0.2); Hematocrit 27.9 % (36.0-46.0); Lymphocytes # (auto) 2.6 10 ^3/uL (0.4-5.4); Monocytes # (auto) 0.4 10 ^3/uL (0-1.3)
[2024-12-16 01:01] LABS: Basophils % (auto) 0.5 % (0.0-2.0); Eosinophils # (auto) 0.1 10 ^3/uL (0-0.8); Eosinophils % (auto) 1.1 % (0.0-7.0); Lymphocytes % (auto) 43.5 % (10.0-50.0); Mean Corpuscular Hemoglobin 28.4 pg (28.0-32.0); Mean Corpuscular Hgb Conc. 32.2 g/dL (32.0-36.0); Mean Corpuscular Volume 88.2 fL (80.0-100.0); Monocytes % (auto) 7.2 % (0.0-12.0); Neutrophils # (auto) 2.8 10 ^3/uL (1.6-8.6); Neutrophils % (auto) 47.7 % (37.0-80.0); Platelet Count (auto) 481 10^3/uL (140-450); Red Blood Cells 3.16 10^6/uL (4.0-5.20); Red Cell Distribution Width 14.7 % (11.8-14.3); White Blood Cell 5.9 10^3/uL (4.4-10.8)
[2024-12-16] MEDS ORDERED: FER325T PO (01:28)
--- NOTE | 2024-12-16 01:28 | ED.PDOC ---
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 Patient states it subsequent to the delivery she began passing intermittent blood clots. Patient states that today she passed a very large blood clot that was concerned about uterine issues. Patient denies any fever nausea or vomiting. Patient denies any pain. Vital signs were stable on arrival. Chief Complaint: Vaginal Bleed Time Seen by MD: 00:14 Reviewed Notes: Nurses Notes Allergies: Coded Allergies: NO KNOWN ALLERGIES (Unverified , 06/28/17) Home Meds Active Scripts Ferrous Sulfate (FERROUS SULFATE) 325 Mg Tb, 1 TAB PO DAILY, #30 TAB 3 Refills Prov:KENDY CORDERO PAC 12/16/24 Ferrous Sulfate (FERROUS SULFATE) 325 Mg Tb, 1 TAB PO DAILY, #30 TAB 3 Refills Prov:ELIZABETHESTERDIMITRISDEEPTI [facility] 12/06/24 Ibuprofen Micronized (MOTRIN TABLET) 600 Mg Tb, 600 MG PO Q6HP PRN for 20 Days, #80 TAB Prov:GARYDIMITRISDEEPTI [facility] 12/06/24 Docusate Sodium (Docusate Sodium) 100 Mg Cap, 200 MG PO HS PRN for 30 Days, #60 CAP 2 Refills Prov:KORYJamesESSENCEFAIZADIMITRISGRANTEMMETT [facility] 12/06/24 Vit W/ Ferrous Fumara ( One Daily) Daily Tab, 1 TAB PO DAILY, #90 TAB 3 Refills Prov:JOANIEFAIZADIMITRISGRANTEMMETT [facility] 12/06/24 Information Source: Patient Mode of Arrival: Ambulatory Timing: Days Prehospital treatment: None Severity: Moderate Bleeding Quality: Bright Red, Clotted Onset Of Mass/Bleeding: Other (Falling vaginal delivery) Past Medical History PAST MEDICAL HISTORY: Denies Past Medical History (Other): Eleven days status post vaginal delivery. Surgical History: Denies all surgeries REDUCER History: No Pertinent REDUCER History Family History Family History: Reviewed,noncontributory to illness, No family hx of Cancer, No family hx of DM, No family hx of Heart lucio, No family hx of HTN, No family hx ofKidney lucio, No family hx of Liver lucio, No family hx of Lung lucio, No family hx of Stroke Social History Smoker: Non-Smoker Alcohol: Denies ETOH Use Drugs: Denies Drug Use Lives In: Home Constitutional: denies: chills, diaphoresis, fatigue, fever, malaise, sweats, weakness, others EENTM: denies: blurred vision, double vision, ear bleeding, ear discharge, ear drainage, ear pain, ear ringing, eye pain, eye redness, hearing loss, mouth pain, mouth swelling, nasal discharge, nose bleeding, nose congestion, nose pain, photophobia, tearing, throat pain, throat swelling, voice changes, others Respiratory: denies: cough, hemoptysis, orthopnea, SOB at rest, shortness of breath, SOB with excertion, stridor, wheezing, others Cardiovascular: denies: chest pain, dizzy spells, diaphoresis, Dyspnea on exertion, edema, irregular heart beat, left arm pain, lightheadedness, palpitations, PND, syncope, others Gastrointestinal: denies: abdomen distended, abdominal pain, blood streaked bowels, constipated, diarrhea, dysphagia, difficulty swallowing, hematemesis, melena, nausea, poor appetite, poor fluid intake, rectal bleeding, rectal pain, vomiting, others Genitourinary: reports: abnormal vagina bleeding; denies: burning, dyspareunia, dysuria, flank pain, frequency, hematuria, incontinence, pain, , vagina discharge, urgency, others Neurological: denies: dizziness, fainting, headache, left sided numbness, left sided weakness, numbness, paresthesia, pre-existing deficit, right sided numbness, right sided weakness, seizure, speech problems, tingling, tremors, weakness, others Musculoskeletal: denies: back pain, gout, joint pain, joint swelling, muscle pain, muscle stiffness, neck pain, others Integumetry: denies: bruises, change in color, change in hair/nails, dryness, laceration, lesions, lumps, rash, wounds, others Allergic/Immunocompromised: denies: Difficulty Healing, Frequent Infections, Hives, Itching, others Hematologic/Lymphatic: denies: anemia, blood clots, easy bleeding, easy bruising, swollen glands, others Endocrine: denies: excessive hunger, excessive sweating, excessive thirst, excessive urination, flushing, intolerance to cold, intolerance to heat, unexplained weight gain, unexplained weight loss, others Psychiatric: denies: anxiety, bipolar disorder, depression, hopeless, panic disorder, schizophrenia, sleepless, suicidal, others Physical Exam General Appearance: No Apparent Distress (Patient does not complaining of any pain at time of evaluation.), Normal HEENT: Normal ENT Inspection, Pharynx Normal, TMs Normal Neck: Full Range of Motion, Non-Tender, Normal, Normal Inspection Respiratory: Chest Non-Tender, Lungs Clear, No Accessory Muscle Use, No Respiratory Distress, Normal Breath Sounds Cardiovascular: No Edema, No JVD, No Murmur, No Gallop, Normal Peripheral Pulses, Regular Rate/Rhythm Breast Exam: Deferred Gastrointestinal: No Organomegaly, Non Tender, No Pulsatile Mass, Normal Bowel Sounds, Soft Genitalia: Deferred Pelvic: Deferred Rectal: Deferred Extremities: No calf tenderness, Normal capillary refill, Normal inspection, Normal range of motion, Non-tender, No pedal edema Neurologic: Alert, territory account representative II-XII nml as Tested, No Motor Deficits, Normal Affect, Normal Mood, No Sensory Deficits Cerebellar Function: Normal Reflexes: Normal Skin: Dry, Normal Color, Warm Lymphatic: No Adenopathy Was a procedure done? Was a procedure done?: No Differential Diagnosis (REDUCER) Vaginal Bleeding: Hormonal, Menorrhagia, Menometrorrhagia, Other ( bleeding) X-Ray, Labs, Meds, VS Vital Signs Date Time Temp Pulse Resp B/P (MAP) Pulse Ox O2 Delivery O2 Flow Rate FiO2 12/16/24 00:14 99.2 73 16 124/64 (84) 97 Lab Test 12/16/24 00:46 Range/Units White Blood Count 5.9 4.4-10.8 10^3/uL Red Blood Count 3.16 L 4.0-5.20 10^6/uL Hemoglobin 9.0 L 12.2-16.2 g/dL Hematocrit 27.9 L 36.0-46.0 % Mean Corpuscular Volume 88.2 80.0-100.0 fL Mean Corpuscular Hemoglobin 28.4 28.0-32.0 pg Mean Corpuscular Hemoglobin Concent 32.2 32.0-36.0 g/dL Red Cell Distribution Width 14.7 H 11.8-14.3 % Platelet Count 481 H 140-450 10^3/uL Mean Platelet Volume 7.2 6.9-10.8 fL Neutrophils (%) (Auto) 47.7 37.0-80.0 % Lymphocytes (%) (Auto) 43.5 10.0-50.0 % Monocytes (%) (Auto) 7.2 0.0-12.0 % Eosinophils (%) (Auto) 1.1 0.0-7.0 % Basophils (%) (Auto) 0.5 0.0-2.0 % Neutrophils # (Auto) 2.8 1.6-8.6 10 ^3/uL Lymphocytes # (Auto) 2.6 0.4-5.4 10 ^3/uL Monocytes # (Auto) 0.4 0-1.3 10 ^3/uL Eosinophils # (Auto) 0.1 0-0.8 10 ^3/uL Basophils # (Auto) 0 0-0.2 10 ^3/uL Nucleated Red Blood Cells 0.0 % X-Ray, Labs, Meds, VS Comment All studies performed in the ED were evaluated by me personally. Serum laboratories remarkable for a mild anemia. Pelvic ultrasound was unremarkable for any retained products. Ultrasound did confirm a thickened endometrium without blood flow which is probably due to the retained blood products. 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 Time of 1ST Reevaluation: :27 Reevaluation 1ST: Unchanged Consultation: PCP, research assistant Patient Education/Counseling: Diagnosis, Treatment Family Education/Counseling: Diagnosis, Treatment Departure 1 Departure Time of Disposition: :27 Impression: Primary Impression: Dysfunctional uterine bleeding Additional Impression: Anemia Disposition: HOME / SELF CARE / HOMELESS Condition: Stable Additional Instructions: Advised patient utilize medication as directed and additionally, follow up with safety deposit supervisor for conversation is related to her continued vaginal bleeding events. e-Prescriptions Ferrous Sulfate (FERROUS SULFATE) 325 Mg Tb 1 TAB PO DAILY, #30 TAB 3 Refills Prov: KENDY CORDERO PAC 12/16/24 Discharged With: Self, Friend Critical Care Note Critical Care Time?: No Stability Stability form required: No Heart Score Heart Score: Heart Score Response (Comments) Value History N/A 0 EKG N/A 0 Age N/A 0 Risk Factors N/A 0 Troponin N/A 0 Total 0 KENDY CORDERO PAC Dec 16, 2024 01:28
--- NOTE | 2024-12-16 01:40 | DVH ---
TRANSABDOMINAL PELVIC ULTRASOUND CLINICAL HISTORY: Confirm resolution of products of conception. TECHNIQUE: Multiple grayscale ultrasound images were obtained of the pelvis via transabdominal appro ach. Limited color Doppler and spectral Doppler acquisitions were also obtained. COMPARISON: None FINDINGS: Uterus: 9.4 x 8.4 x 9.5 cm. The uterine contour is smooth. No myometrial masses are seen. Endometrium: 2.9 cm. Heterogeneous endometrium with debris. No blood flow. Right adnexa: right ovary 2.1 x 1.3 x 2.0 cm. Normal arterial blood flow in the ovary. No right adnex al mass seen. Left adnexa: left ovary is not visualized. No left adnexal mass seen. Other: None IMPRESSION: Heterogeneous thickened endometrium without definite blood flow, which could be due to blood products
[2024-12-16 02:45] VITALS: BP 119/71; PULSE 67; RESP 17; TEMP 97.6; O2SAT 97
== END 2024-12-16 02:51 | disposition home or self-care (01) ==
LOC: ER 00:01
DX: N93.8 Other specified abnormal uterine and vaginal bleeding (principal); D64.9 Anemia, unspecified; R93.89 Abnormal findings on diagnostic imaging of other specified body structures
CPT/HCPCS: 36415; 76856; 85025